=== PATIENT | female | born 1940 | race Caucasian/White ===

== ENCOUNTER → 2017-05-31 | Outpatient (CLI) | payer MEDICARE, OTHER ==
[~2017-05-31] MED LIST: AMLO10 PO; ATOR40TA PO; Advil200 M1; Aspirin EC81 MG PO; CLOP75 PO; K-Dur10 MEQ PO; METO100ER PO; Omeprazole20 M1 PO
== END ==
LOC: PLD 07:12
DX: R31.0 Gross hematuria (principal)
CPT/HCPCS: 88108

== ENCOUNTER 2017-06-15 07:15 | Day surgery (SDC) | payer MEDICARE, OTHER ==
[~2017-06-15] VITALS: Ht 152.4 cm; Wt 93.8 kg
[2017-06-15] MEDS ORDERED: Aspirin EC81 MG PO (08:04)
[2017-06-15] MEDS ORDERED: METO100ER PO (08:04)
[2017-06-15] MEDS ORDERED: ATOR40TA PO (08:05)
[2017-06-15] MEDS ORDERED: AMLO10 PO (08:05)
[2017-06-15] MEDS ORDERED: CLOP75 PO (08:05)
[2017-06-15] MEDS ORDERED: Omeprazole20 M1 PO (08:06)
[2017-06-15] MEDS ORDERED: K-Dur10 MEQ PO (08:06)
[2017-06-15] MEDS ORDERED: Advil200 M1 (08:06)
== END 2017-06-15 10:05 | disposition home or self-care (01) ==
LOC: ORSCSDS 07:15
PROVIDERS: Urology
PROC: 0TBB8ZX Excision of Bladder, Via Natural or Artificial Opening Endoscopic, Diagnostic (ICD-10-PCS; principal; 2017-06-15 08:30)
DX: R31.0 Gross hematuria (principal); D30.3 Benign neoplasm of bladder; I10 Essential (primary) hypertension; I25.10 Atherosclerotic heart disease of native coronary artery without angina pectoris; G47.33 Obstructive sleep apnea (adult) (pediatric); I25.2 Old myocardial infarction; E66.01 Morbid (severe) obesity due to excess calories; Z68.41 Body mass index [BMI] 40.0-44.9, adult; Z79.82 Long term (current) use of aspirin; Z79.899 Other long term (current) drug therapy
CPT/HCPCS: 88305; J0744; J2250; J3010; J7120

== ENCOUNTER → 2021-09-29 | Outpatient (CLI) | payer OTHER ==
[~2021-09-29] MED LIST changes: -AMLO10 PO; +AMLO5 PO; +CALCIUM CIT 311 EAC7 PO; +FAMO20 PO; +Imdur60 MG PO; +LOSA50 PO; +MYRBETRIQ50 MG PO; +SOAANZ40 MG PO
[2021-09-29 15:34] LABS: Bun/Creatinine Ratio 36.2 (12.0-20.0); Calcium, Blood 9.3 mg/dL (8.5-10.1); Creatinine, Blood 0.86 mg/dL (0.40-1.00); Magnesium, Blood 2.2 mg/dL (1.6-2.4); Potassium, Blood 3.7 mmol/L (3.5-5.5)
== END | disposition home or self-care (01) ==
LOC: LAB 12:19 → LAB SHORT 12:19
PROVIDERS: Internal Medicine Cardiovascular Disease
DX: R06.02 Shortness of breath (principal)
CPT/HCPCS: 36415; 80048; 83735

== ENCOUNTER 2025-01-19 07:26 | Emergency (ER) | payer MEDICARE ==
[~2025-01-19] VITALS: Ht 152.4 cm; Wt 83.0 kg
[~2025-01-19 07:26] MED LIST changes: -ATOR40TA PO; +ATOR80 PO; -Imdur60 MG PO; +Isosorbide Mono60 MG PO
[2025-01-19] MEDS ORDERED: NS 500 ML IV SCH (07:40)
[2025-01-19 07:45] LABS: Source, Urine Clean Catch
[2025-01-19 07:48] LABS: BASOPHILS ABSOLUTE AUTO 0.02 K/mm3 (0.00-0.23); BASOPHILS PERCENT AUTO 0 % (0-2); EOSINOPHILS ABSOLUTE AUTO 0.06 K/mm3 (0.00-0.68); EOSINOPHILS PERCENT AUTO 1 % (0-6); Hematocrit 47.8 % (33.0-51.0); Hemoglobin 16.1 g/dL (11.5-16.0); IMMATURE GRAN ABSOLUTE AUTO 0.01 K/mm3 (0.00-0.10); IMMATURE GRAN PERCENT AUTO 0 % (0-1); LYMPHOCYTES ABSOLUTE AUTO 1.26 K/mm3 (0.84-5.20); LYMPHOCYTES PERCENT AUTO 18 % (21-46); MONOCYTES ABSOLUTE AUTO 0.62 K/mm3 (0.16-1.47); MONOCYTES PERCENT AUTO 9 % (4-13); Mean Corpuscular HGB Conc 33.7 g/dL (31.5-36.5); Mean Corpuscular Volume 92 fL (80-100); NEUTROPHILS ABSOLUTE AUTO 5.03 K/mm3 (1.96-9.15); NEUTROPHILS PERCENT AUTO 72 % (41-73); NRBC ABSOLUTE 0.00 K/mm3 (0.00-0.02); NRBC Auto 0.0 /100 WBC (0.0-0.2); Platelet Count 152 K/mm3 (150-400); RDW Coefficient Variation 13.2 % (11.7-14.2); RDW Standard Deviation 44.5 fL (35.1-46.3)
[2025-01-19 07:52] LABS: Bilirubin, Urine Neg (Neg); Color, Urine Amber (P-Yellow); Glucose Qualitative, Urine 4+ (Neg); Ketones, Urine Neg (Neg); Leukocyte Esterase, Urine 1+ (Neg); Protein, Urine 2+ (Neg); Specific Gravity, Urine 1.010 (1.003-1.022); Urobilinogen, Urine NORM (Normal)
[2025-01-19 08:00] LABS: Red Blood Cells, Urine TNTC /hpf (0-2); White Blood Cells, Urine 0-2 /hpf (0-5)
[2025-01-19 08:08] LABS: Alanine Aminotransfer (ALT/SGP 37.0 U/L (12-78); Albumin, Blood 3.5 g/dL (3.4-5.0); Albumin/Globulin Ratio 1.1 (0.8-1.8); Anion Gap 9.0 mmol/L (3-11); Aspartate Aminotrans (AST/SGOT 20.0 U/L (12-37); Bilirubin, Total 0.6 mg/dL (0.1-1.0); Blood Urea Nitrogen 13.0 mg/dL (8-24); CO2, Blood 23.0 mmol/L (21-32); Calcium, Blood 8.8 mg/dL (8.5-10.1); Chloride, Blood 113.0 mmol/L (98-108); Creatinine, Blood 0.57 mg/dL (0.40-1.00); Globulin, Blood 3.3 g/dL (2.2-4.0); Glucose, Blood 149.0 mg/dL (70-99); Magnesium, Blood 2.3 mg/dL (1.6-2.4); Potassium, Blood 3.8 mmol/L (3.5-5.5); Sodium, Blood 141.0 mmol/L (136-145); Total Protein, Blood 6.8 g/dL (6.4-8.2)
[2025-01-19 08:24] LABS: pH Blood Venous 7.39 (7.34-7.37)
[2025-01-19] MEDS ORDERED: NS 1,000 ML IV SCH (08:35)
[2025-01-19 08:54] LABS: pH Blood Venous 7.38 (7.34-7.37)
[2025-01-19] MEDS ORDERED: CARV6.25 PO (09:18)
[2025-01-19] MEDS ORDERED: JARDIANCE10 MG PO (09:18)
[2025-01-19] MEDS ORDERED: SPIR25 PO (09:19)
[2025-01-19] MEDS ORDERED: TICA90TA PO (09:19)
[2025-01-19] MEDS ORDERED: ENTRESTO 24 MG1 EACH PO (09:20)
[2025-01-19] MEDS ORDERED: MAGNESIUM OXID500 MG PO (09:20)
[2025-01-19] MEDS ORDERED: RANO500T PO (09:21)
[2025-01-19] MEDS ORDERED: PANT40 PO (09:21)
[2025-01-19 12:15] VITALS: BP 144/67
== END 2025-01-19 13:21 | disposition home or self-care (01) ==
LOC: ER 07:26
PROVIDERS: Student in an Organized Health Care Education/Training Program
DX: T40.601A Poisoning by unspecified narcotics, accidental (unintentional), initial encounter (principal); G92.8 Other toxic encephalopathy; R41.82 Altered mental status, unspecified; R31.9 Hematuria, unspecified; I10 Essential (primary) hypertension; K21.9 Gastro-esophageal reflux disease without esophagitis; E86.0 Dehydration; E78.5 Hyperlipidemia, unspecified; Z88.0 Allergy status to penicillin; Z88.1 Allergy status to other antibiotic agents; Z88.8 Allergy status to other drugs, medicaments and biological substances; Z79.82 Long term (current) use of aspirin; Z79.899 Other long term (current) drug therapy; Z90.710 Acquired absence of both cervix and uterus; Z90.49 Acquired absence of other specified parts of digestive tract
CPT/HCPCS: 70450; 74177; 80053; 81001; 82140; 82803; 83690; 83735; 85025; 87086; 93005; 93010; 99285-25; G0480; J7030; Q9967